=== PATIENT | male | born 1995 | race American Indian/Alaskan Native ===

== ENCOUNTER 2019-09-14 04:46 | Emergency (ER) | payer OTHER ==
[2019-09-14 04:51] VITALS: BP 168/70
[2019-09-14] MEDS ORDERED: predniSONE 20 MG TAB PO ONE (06:35)
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
== END 2019-09-14 06:58 | disposition home or self-care (01) ==
LOC: ED 04:46
DX: T78.40XA Allergy, unspecified, initial encounter (principal); I10 Essential (primary) hypertension; Z91.018 Allergy to other foods; Z79.899 Other long term (current) drug therapy; X58.XXXA Exposure to other specified factors, initial encounter
CPT/HCPCS: 99282; J7512